=== PATIENT | male | born 1985 | race Caucasian/White ===

== ENCOUNTER 2017-10-29 01:44 | Emergency (ER) | payer OTHER ==
[~2017-10-29] VITALS: Ht 264.2 cm; Wt 71.7 kg
[2017-10-29 03:08] LABS: AMP/METHAMP POSITIVE (Negative); BARBITURATES Negative (Negative); BENZODIAZEPINES POSITIVE (Negative); COCAINE Negative (Negative); METHADONE Negative (Negative); OPIATES Negative (Negative); PCP Negative (Negative); THC Negative (Negative)
[2017-10-29 03:08] LABS: CALCIUM 8.9 mg/dL (8.5-10.1); CREATININE 1.5 mg/dL (0.6-1.3); POTASSIUM 3.5 mmol/L (3.5-5.1)
[2017-10-29 03:13] LABS: TOTAL BILIRUBIN 0.6 mg/dL (<0.1-1.0); TOTAL PROTEIN 7.3 g/dL (6.4-8.2)
[2017-10-29 03:19] LABS: ABSOLUTE BASOPHILS 0.1 thou/uL (0.0-0.2); ABSOLUTE EOSINOPHILS 0.1 thou/uL (0.0-0.7); ABSOLUTE LYMPHOCYTES 1.5 thou/uL (0.8-5.3); ABSOLUTE MONOCYTES 0.6 thou/uL (0.0-1.2); ABSOLUTE NEUTROPHILS 5.4 thou/uL (1.6-8.1); BASOPHILS 1.3 %; EOSINOPHILS 0.7 %; HEMATOCRIT 45.7 % (42.0-52.0); HEMOGLOBIN 15.7 gm/dL (14.0-18.0); LYMPHOCYTES 19.7 %; MCH 31.6 pg (26.0-34.0); MCHC 34.4 g/dL (28.0-37.0); MCV 91.9 fL (80.0-100.0); MONOCYTES 7.4 %; MPV 7.3 fl. (7.2-11.1); NUCLEATED RBCS 0 /100WBC; PLATELET COUNT* 297 thou/uL (150-400); POLYS 70.9 %; RBC 4.97 mil/uL (4.50-6.00); RDW-CV 14.6 % (10.5-14.5); WBC 7.6 thou/uL (4.0-11.0)
[2017-10-29 05:41] VITALS: BP 100/68
== END 2017-10-29 05:44 | disposition home or self-care (01) ==
LOC: M.ERS 01:44 → EDBD 01:44 → M.ERS 05:44
PROVIDERS: Personal Emergency Response Attendant
DX: F19.10 Other psychoactive substance abuse, uncomplicated (principal)

== ENCOUNTER 2017-10-29 07:55 | Emergency (ER) | payer OTHER ==
[~2017-10-29] VITALS: Ht 170.2 cm; Wt 63.5 kg
[2017-10-29 08:44] LABS: ABSOLUTE EOSINOPHILS 0.1 thou/uL (0.0-0.7); ABSOLUTE LYMPHOCYTES 2.3 thou/uL (0.8-5.3); ABSOLUTE MONOCYTES 0.9 thou/uL (0.0-1.2); BASOPHILS 0.2 %; EOSINOPHILS 0.8 %; HEMATOCRIT 46.6 % (42.0-52.0); HEMOGLOBIN 16.2 gm/dL (14.0-18.0); MCH 32.6 pg (26.0-34.0); MCHC 34.9 g/dL (28.0-37.0); MCV 93.5 fL (80.0-100.0); MONOCYTES 10.3 %; MPV 7.6 fl. (7.2-11.1); NUCLEATED RBCS 0 /100WBC; PLATELET COUNT* 290 thou/uL (150-400); POLYS 60.7 %; RBC 4.98 mil/uL (4.50-6.00); RDW-CV 14.8 % (10.5-14.5); WBC 8.3 thou/uL (4.0-11.0)
[2017-10-29 08:54] LABS: ANION GAP 4 mmol/L (7-16); BUN 12 mg/dL (7-18); CALCIUM 8.7 mg/dL (8.5-10.1); CHLORIDE 105 mmol/L (98-107); CO2 33 mmol/L (21-32); CREATININE 1.4 mg/dL (0.6-1.3); GLUCOSE 99 mg/dL (70-99); POTASSIUM 3.7 mmol/L (3.5-5.1); SODIUM 142 mmol/L (136-145)
[2017-10-29 09:01] LABS: ALBUMIN 3.9 g/dL (3.4-5.0); ALKALINE PHOSPHATASE 86 U/L (46-116); LIPASE 151 U/L (73-393); MAGNESIUM 2.2 mg/dL (1.8-2.4); SGOT 32 U/L (15-37); SGPT 36 U/L (30-65); TOTAL BILIRUBIN 0.8 mg/dL (<0.1-1.0); TOTAL PROTEIN 7.3 g/dL (6.4-8.2); TROPONIN-I LEVEL <0.06 ng/mL (<0.06)
[2017-10-29 09:20] VITALS: BP 105/68
--- NOTE | 2017-10-29 17:58 | EKG ---
[place] [address] ELECTROCARDIOGRAM REPORT Name: ASHLEIGH CAMPO Room: [facility]#: [id number] Admission: 10/29/17 Attend Phys: Discharge: 10/29/17 Date of : 81 Report #: [id number] THIS REPORT FOR: //name// [facility] ED Test Date: 2017-10-29 Test Time: 08:08:20 Pat Name: ASHLEIGH CAMPO Department: Room: Gender: M Assistant Controller: CHRIS : 1985 Requested By: Jose Luis Mejia Order Number: [id number] MD: Lb Agarwal Measurements Intervals [place] Rate: 83 P: 72 NE: 154 QRS: 71 QRSD: 95 T: 56 QT: 366 QTc: 430 Interpretive Statements Sinus rhythm ST elev, probable normal early repol pattern No previous ECG available for comparison Electronically Signed On 10-29-2017 17:58:13 CDT by Lb Agarwal [email or web address] <ELECTRONICALLY SIGNED> By: Lb Agarwal MD, [facility] 10/29/17 1758 0808 08 Lb Agarwal MD, FACC /EPI
== END 2017-10-29 09:22 | disposition home or self-care (01) ==
LOC: M.ERS 07:55
PROVIDERS: Emergency Medicine Emergency Medical Services
DX: Z71.1 Person with feared health complaint in whom no diagnosis is made (principal)

== ENCOUNTER 2017-11-19 07:37 | Emergency (ER) | payer OTHER ==
[~2017-11-19] VITALS: Ht 175.3 cm; Wt 79.4 kg
[2017-11-19 07:38] VITALS: BP 125/85
== END 2017-11-19 07:51 | disposition home or self-care (01) ==
LOC: M.ERS 07:37
DX: F41.0 Panic disorder [episodic paroxysmal anxiety] (principal)

== ENCOUNTER 2018-05-02 20:54 | Inpatient (IN) | payer OTHER ==
[~2018-05-02] VITALS: Ht 175.3 cm; Wt 79.8 kg
[2018-05-02 20:57] VITALS: BP 106/63
[2018-05-02 21:35] LABS: PROTIME 10.4 Seconds (9.20-11.50)
[2018-05-02 21:37] LABS: HEMATOCRIT 38.9 % (42.0-52.0); HEMOGLOBIN 13.5 gm/dL (14.0-18.0); MCH 31.3 pg (26.0-34.0); MCHC 34.7 g/dL (28.0-37.0); MCV 89.9 fL (80.0-100.0); MPV 7.8 fl. (7.2-11.1); NUCLEATED RBCS 0 /100WBC; PLATELET COUNT* 237 thou/uL (150-400); RBC 4.32 mil/uL (4.50-6.00); RDW-CV 13.2 % (10.5-14.5); WBC 12.6 thou/uL (4.0-11.0)
[2018-05-02 21:44] LABS: ANION GAP 3 mmol/L (7-16); BUN 8 mg/dL (7-18); CALCIUM 8.4 mg/dL (8.5-10.1); CHLORIDE 92 mmol/L (98-107); CO2 30 mmol/L (21-32); GLUCOSE 90 mg/dL (70-99); POTASSIUM 3.3 mmol/L (3.5-5.1); SODIUM 125 mmol/L (136-145); TROPONIN-I LEVEL <0.06 ng/mL (<0.06)
[2018-05-02 21:49] LABS: ALBUMIN 3.5 g/dL (3.4-5.0); ALKALINE PHOSPHATASE 65 U/L (46-116); LIPASE 68 U/L (73-393); NT-PRO BRAIN NAT PEPTIDE 59 pg/mL (<300); SGOT 55 U/L (15-37); SGPT 56 U/L (30-65); TOTAL BILIRUBIN 1.2 mg/dL (<0.1-1.0); TOTAL PROTEIN 6.2 g/dL (6.4-8.2)
[2018-05-02 22:00] LABS: ABSOLUTE LYMPHOCYTES 2.3 thou/uL (0.8-5.3); ABSOLUTE NEUTROPHILS 10.3 thou/uL (1.6-8.1); PLATELET ESTIMATE ADEQUATE
[2018-05-02 22:14] LABS: SALICYLATE < 2.8 mg/dL (2.8-20.0)
[2018-05-02 22:24] LABS: ACETAMINOPHEN < 2 ug/mL (10-30)
[2018-05-03 00:31] VITALS: BP 92/46
[2018-05-03 00:47] LABS: URINE BILIRUBIN NEGATIVE (Negative); URINE BLOOD NEGATIVE (Negative); URINE CLARITY CLEAR; URINE COLOR YELLOW; URINE GLUCOSE-RANDOM NEGATIVE (Negative); URINE KETONES 1+ (Negative); URINE LEUKOCYTES-REFLEX NEGATIVE (Negative); URINE NITRITE-REFLEX NEGATIVE (Negative); URINE PROTEIN NEGATIVE (Negative); URINE SPECIFIC GRAVITY <= 1.005 (1.005-1.030); URINE UROBILINOGEN 0.2 E.U./dl (0.2-1.0)
[2018-05-03 00:54] LABS: AMP/METHAMP Negative (Negative); BARBITURATES Negative (Negative); BENZODIAZEPINES Negative (Negative); COCAINE Negative (Negative); METHADONE Negative (Negative); OPIATES Negative (Negative); PCP Negative (Negative); THC Negative (Negative)
[2018-05-03 04:00] VITALS: BP 102/44
--- NOTE | 2018-05-03 04:27 | NUR ---
RECEIVED PT AT APPROX 0037. PT LETHARGIC BUT IS AROUSABLE. ABLE TO ANSWER SIMPLE QUESTIONS. VSS ON 2L/NC. PLACED ON EASEMENT MAN TRACING SA. PROVIDED RE-ORIENTATION ON PLACE AND SITUATION. ADVISED ON HOW TO USE CALL LIGHT AND FALL PRECAUTIONS PUT IN PLACE. HOURLY ROUNDING DONE FOR PT SAFETY.
[2018-05-03 07:20] VITALS: BP 96/45
[2018-05-03 10:30] LABS: ABSOLUTE BASOPHILS 0.1 thou/uL (0.0-0.2); ABSOLUTE EOSINOPHILS 0.1 thou/uL (0.0-0.7); ABSOLUTE LYMPHOCYTES 1.7 thou/uL (0.8-5.3); ABSOLUTE MONOCYTES 0.5 thou/uL (0.0-1.2); ABSOLUTE NEUTROPHILS 6.5 thou/uL (1.6-8.1); EOSINOPHILS 0.7 %; HEMATOCRIT 39.4 % (42.0-52.0); HEMOGLOBIN 13.3 gm/dL (14.0-18.0); LYMPHOCYTES 18.6 %; MCH 30.6 pg (26.0-34.0); MCHC 33.7 g/dL (28.0-37.0); MCV 90.9 fL (80.0-100.0); MONOCYTES 6.1 %; MPV 7.6 fl. (7.2-11.1); NUCLEATED RBCS 0 /100WBC; PLATELET COUNT* 238 thou/uL (150-400); POLYS 73.6 %; RBC 4.34 mil/uL (4.50-6.00); RDW-CV 13.4 % (10.5-14.5); WBC 8.9 thou/uL (4.0-11.0)
[2018-05-03 10:43] LABS: CALCIUM 8.3 mg/dL (8.5-10.1); POTASSIUM 3.9 mmol/L (3.5-5.1)
[2018-05-03 11:51] VITALS: BP 103/56
[2018-05-03 12:46] VITALS: BP 103/56
--- NOTE | 2018-05-03 13:15 | NUR ---
ASSUMED CARE OF PATIENT AT APPROX 0730. ALERT AND ORIENTED X4. ASSESSMENT COMPLETED AND CHARTED. VSS ON ROOM AIR. NO COMPLAINTS OF PAIN, NAUSEA, OR SOA. PATIENT RESTLESS AND WALKING THE UNIT CONTINUALLY. PATIENT FOUND OUTSIDE THE HOSPITAL SMOKING AND INFORMED OF THE NO SMOKING POLICY ON THE PREMESIS AND ASKED TO RETURN TO THE UNIT. SECURITY CAME TO PATIENTS ROOM TO EDUCATE ON NO SMOKING POLICY. PATIENT DISCHARGED AT 1315 WITH ALL PERSONAL BELONGINGS AND DISCHARGE INFORMATION.
--- NOTE | 2018-05-03 14:10 | EKG ---
[place] [address] ELECTROCARDIOGRAM REPORT Name: ASHLEIGH CAMPO Room: [address] IN M.R.#: [id number] Admission: 05/02/18 Attend Phys: Andrés Silva MD Discharge: 05/03/18 Date of : 81 Report #: [id number] THIS REPORT FOR: //name// [facility] ED Test Date: 2018-05-02 Test Time: 21:11:05 Pat Name: ASHLEIGH CAMPO Department: Room: [facility] Gender: M Block And Case Maker: JONTAHAN : 1985 Requested By: Kylie Vargas Order Number: [id number] MD: Gilberto Andres Measurements Intervals [place] Rate: 50 P: 75 MN: 179 QRS: 71 QRSD: 89 T: 54 QT: 422 QTc: 385 Interpretive Statements Incomplete analysis due to missing data in precordial lead(s) Sinus rhythm ST elevation suggests acute pericarditis Baseline wander in lead(s) V2 Missing lead(s): V6 Compared to ECG 10/29/2017 08:08:20 No significant changes Electronically Signed On 05-03-2018 14:09:49 [employer]ASKET [employer] by Gilberto Andres [email or web address] <ELECTRONICALLY SIGNED> By: Gilberto Andres MD, FAC 05/03/18 1409 10 10 Gilberto Andres MD, FAC /EPI
--- NOTE | 2018-05-04 12:50 | CON ---
[address] [address] CONSULTATION Name: ASHLEIGH CAMPO Room: [address] M.R.#: [id number] Admission: 05/02/18 Attend Phys: Andrés Silva MD Discharge: 05/03/18 Date of : 81 Report #: [id number] THIS REPORT FOR: //name// CC: [facility] physician/PCP Andrés Silva HISTORY OF PRESENT ILLNESS: The patient is a 32-year-old male who has recently been going to the gym quite a bit. He tells me he gets there by 7:00 a.m. and stays there until the evening, he has been running for example, last week at an average of 5 miles a day. He has no particular goal with this exercise, but is trying to lose weight. He did tell me that when he goes to the gym, he does drink quite a bit of water and in the past day or two has had as many as 8-10 16-ounce bottles of water. Otherwise, the patient has no history of lapses in time and has never had a seizure that he is aware of. PAST MEDICAL HISTORY: Methamphetamine use. PAST SURGICAL HISTORY: Negative. MEDICATIONS: None. ALLERGIES: None. PHYSICAL EXAMINATION: VITAL SIGNS: Temperature is 36.9, pulse rate 78, respiratory rate 20, blood pressure 103/56, bedside pulse oximetry 100% on room air. NEUROLOGIC: Cranial nerves 2-12 are grossly intact. Motor exam demonstrates symmetrical strength in all 4 extremities with tone and bulk normal. Reflexes are unremarkable. There is no evidence of dysmetria. LABORATORY DATA: White blood cell count 8.9, hemoglobin 13.3, hematocrit 39.4, MCV 90.9, platelet count 238,000. Urinalysis 1+ ketones. Chemistry: Sodium on admission was 125, today it is 140. Potassium today as are the remainder of the labs 3.9, chloride 108, carbon dioxide 27, BUN 8, creatinine 1, GFR 86, total bilirubin 1.2, AST 55, ALT 56, alkaline phosphatase 65. Creatinine kinase 1211. Toxicology unremarkable. IMAGING STUDIES: CT scan of the head unremarkable. CT angiography of the head and neck unremarkable. IMPRESSION AND PLAN: This patient has had hyponatremia. I also saw that his urinalysis demonstrated 1+ ketones, so I suspect the patient may not be eating properly in addition to drinking too much water. On some days he is drinking as much as 160 ounces of water. I counseled him on trying to cut back on his water intake and perhaps on his exercise as well. He also had elevated muscle enzymes, [place] [address] CONSULTATION Name: ASHLEIGH CAMPO Room: [address] M.R.#: [id number] Admission: 05/02/18 Attend Phys: Andrés Silva MD Discharge: 05/03/18 Date of : 81 Report #: [id number] elevated liver functions. He has had a CT scan of the abdomen and pelvis and this showed a trace amount of free fluid in the pelvis and the inferior margin of the right lobe of the liver of uncertain etiology. The radiologist was concerned for an intraabdominal inflammatory process. With regard to the altered mentation, this is most likely secondary to hyponatremia and I did speak to him about drinking less water. The abnormal liver functions, I will leave to the admitting physician. I thank you for your kind referral of the patient. <ELECTRONICALLY SIGNED> By: Erin Wilde DO 05/04/18 1250 1255 [id number] Wilde DO /nt
== END 2018-05-03 13:15 | disposition home or self-care (01) | DRG 640 ==
LOC: M.ERS 20:54 → M.TBA-ER 23:39 → M.2W 23:39
PROVIDERS: Emergency Medicine; Internal Medicine
DX: E87.1 Hypo-osmolality and hyponatremia (principal); G93.41 Metabolic encephalopathy; F17.210 Nicotine dependence, cigarettes, uncomplicated; F41.0 Panic disorder [episodic paroxysmal anxiety]; Z82.49 Family history of ischemic heart disease and other diseases of the circulatory system

== ENCOUNTER 2018-07-07 08:33 | Emergency (ER) | payer OTHER ==
[~2018-07-07] VITALS: Ht 175.3 cm; Wt 77.1 kg
[2018-07-07 08:41] VITALS: BP 124/73
== END 2018-07-07 09:39 | disposition home or self-care (01) ==
LOC: M.ERS 08:33
DX: Z20.2 Contact with and (suspected) exposure to infections with a predominantly sexual mode of transmission (principal)

== ENCOUNTER 2019-07-11 00:28 | Emergency (ER) | payer OTHER ==
[~2019-07-11] VITALS: Ht 175.3 cm; Wt 79.8 kg
[2019-07-11 00:44] VITALS: BP 151/94
== END 2019-07-11 00:45 | disposition home or self-care (01) ==
LOC: M.ERS 00:28
DX: K08.89 Other specified disorders of teeth and supporting structures (principal)